=== PATIENT | female | born 1960 | race Caucasian/White ===

== ENCOUNTER 2017-07-06 14:56 | Emergency (ER) | payer OTHER ==
[2017-07-06 15:08] VITALS: BP 156/80
--- NOTE | 2017-07-06 15:18 | UC ---
Cardiac HPI - HPI Summary HPI Summary: 56 year old female presents with chest heaviness and shortness of breath - History of Current Complaint Chief Complaint: UCChestPain Stated Complaint: CHEST HEAVINESS/FLUTTER Time Seen by Provider: 07/06/17 14:59 Hx Obtained From: Patient Hx Last Menstrual Period: none, ovaries removed Onset/Duration: Gradual Onset Timing: Constant Initial Severity: Moderate Current Severity: Moderate - Allergy/Home Medications Allergies/Adverse Reactions: Allergies Allergy/AdvReac Type Severity Reaction Status Date / Time No Known Allergies Allergy Verified 07/06/17 15:08 Home Medications: Home Medications NK [No Home Medications Reported] 07/06/17 [History Confirmed 07/06/17] PMH/Surg Hx/FS Hx/Imm Hx Previously Healthy: Yes - Surgical History Surgical History: Yes Surgery Procedure, Year, and Place: TONSILLECTOMY. oophrectomy, bladder sling - Family History Known Family History: Negative: Diabetes - Social History Alcohol Use: Occasionally Substance Use Type: None Smoking Status (MU): Never Smoked Tobacco - Immunization History Most Recent Influenza Vaccination: MAY 2016 Most Recent Pneumonia Vaccination: MAY 2016 Review of Systems Cardiovascular: Chest Pain All Other Systems Reviewed And Are Negative: Yes Physical Exam Triage Information Reviewed: Yes Appearance: Ill-Appearing Vital Signs: Initial Vital Signs Temp 37.4 C 07/06/17 15:00 Pulse 70 07/06/17 15:00 Resp 14 07/06/17 15:00 BP 156/80 07/06/17 15:00 Pulse Ox 100 07/06/17 15:00 Vital Signs Reviewed: Yes Eye Exam: Normal ENT Exam: Normal Dental Exam: Normal Neck exam: Normal Neck: Positive: 1 Respiratory Exam: Normal Cardiovascular Exam: Normal Abdominal Exam: Normal Musculoskeletal Exam: Normal Neurological Exam: Normal Psychological Exam: Normal Skin Exam: Normal - Clinical Impression Provider Diagnoses: chest pain Discharge - Discharge Plan Condition: Stable Disposition: OTHER Discharge Disposition Comment: patient suggested to go to er for chest pain Patient Education Materials: Chest Pain (ED) Referrals: No Primary Care Phys,NOPCP [Medical Doctor] - Additional Instructions: PATIENT SUGGESTED TO GO TO ER FOR CHEST HEAVINESS.
== END 2017-07-06 15:27 ==
LOC: UCCORT 14:56
DX: R07.9 Chest pain, unspecified (principal)
CPT/HCPCS: 93005; 99212; G0463

== ENCOUNTER 2018-09-03 14:45 | Emergency (ER) | payer OTHER ==
[2018-09-03 15:07] VITALS: BP 140/78
--- NOTE | 2018-09-03 15:23 | UC ---
Ear Complaint HPI - HPI Summary HPI Summary: bilateral plugged ears x 4 days right worse than left , no ear pain , + nasal congestion , no cough , no fever, no dizziness - History of Current Complaint Chief Complaint: UCEar Stated Complaint: PLUGGED RIGHT EAR WITH NUMBNESS FACE Time Seen by Provider: 09/03/18 14:54 Hx Obtained From: Patient Hx Last Menstrual Period: none, ovaries removed ?: Yes Onset/Duration: Gradual Onset, Lasting Days - 4, Still Present Severity Initially: Moderate Severity Currently: Moderate Pain Intensity: 0 Alleviating Factors: Nothing Associated Signs/Symptoms: Positive: Hearing Loss - right ear, URI Symptoms - Allergies/Home Medications Allergies/Adverse Reactions: Allergies Allergy/AdvReac Type Severity Reaction Status Date / Time No Known Allergies Allergy Verified 09/03/18 15:07 Home Medications: Home Medications Blood Pressure Medication 09/03/18 [History] PMH/Surg Hx/FS Hx/Imm Hx Cardiovascular History: Hypertension - not on meds - Surgical History Surgical History: Yes Surgery Procedure, Year, and Place: TONSILLECTOMY. oophrectomy, bladder sling - Family History Known Family History: Negative: Diabetes - Social History Alcohol Use: Occasionally Substance Use Type: None Smoking Status (MU): Never Smoked Tobacco - Immunization History Most Recent Influenza Vaccination: MAY 2016 Most Recent Pneumonia Vaccination: MAY 2016 Review of Systems All Other Systems Reviewed And Are Negative: Yes Constitutional: Positive: Negative Skin: Positive: Negative Eyes: Positive: Negative Respiratory: Positive: Negative Is Patient Immunocompromised?: No Physical Exam Triage Information Reviewed: Yes Appearance: Well-Appearing, No Pain Distress, Well-Nourished Vital Signs: Initial Vital Signs Temp 98.5 F 09/03/18 15:04 Pulse 92 09/03/18 15:04 Resp 18 09/03/18 15:04 BP 140/78 09/03/18 15:04 Pulse Ox 100 09/03/18 15:04 Vital Signs Reviewed: Yes Eye Exam: Normal Eyes: Positive: Conjunctiva Clear ENT: Positive: Normal ENT inspection, Hearing grossly normal, Pharynx normal, Other - bilateral cerumen impaction , both ears were flushed with warm water, cerumen removed from both ears Ear Complaint Course/Dx - Differential Dx/Diagnosis Provider Diagnosis: Impacted cerumen Discharge - Sign-Out/Discharge Documenting (check all that apply): Patient Departure All imaging exams completed and their final reports reviewed: No Studies - Discharge Plan Condition: Stable Disposition: HOME Patient Education Materials: Diane Catesion (ED) Referrals: Darvin Berkowitz MD [Primary Care Provider] - If Needed - Billing Disposition and Condition Condition: STABLE Disposition: Home
== END 2018-09-03 15:32 | disposition home or self-care (01) ==
LOC: UCCORT 14:45
DX: H61.23 Impacted cerumen, bilateral (principal); I10 Essential (primary) hypertension
CPT/HCPCS: 99211; G0463

== ENCOUNTER 2019-05-05 14:43 | Emergency (ER) | payer BC, OTHER ==
[2019-05-05 15:07] VITALS: BP 140/80
--- NOTE | 2019-05-05 15:54 | UC ---
Ear Complaint HPI - HPI Summary HPI Summary: 58-year-old female who has had bilateral earache, sinus pressure, headache, mild sore throat over the past 4-5 days. In the past she has had similar symptoms which resolved with Flonase and Claritin D as a result of seasonal allergies. She has been using those medications without relief. She states this is not the worst headache of her life. She's had viral meningitis in the past and states this does not feel like that. - History of Current Complaint Chief Complaint: UCGeneralIllness Stated Complaint: ALVAREZ,BILAT EAR PAIN,ST,BODY ACHES Time Seen by Provider: 05/05/19 15:05 Hx Obtained From: Patient Hx Last Menstrual Period: none, ovaries removed ?: No Onset/Duration: Gradual Onset Severity Initially: Mild Severity Currently: Moderate Pain Intensity: 8 Aggravating Factors: Nothing Alleviating Factors: Nothing Associated Signs/Symptoms: Positive: URI Symptoms - Allergies/Home Medications Allergies/Adverse Reactions: Allergies Allergy/AdvReac Type Severity Reaction Status Date / Time No Known Allergies Allergy Verified 05/05/19 14:56 Home Medications: Home Medications Acetaminophen TAB* [Tylenol TAB*] 650 mg PO Q4H PRN 05/05/19 [History Confirmed 05/05/19] Aspirin 4 tab PO DAILY 05/05/19 [History Confirmed 05/05/19] Fluticasone NASAL SPRAY 50MCG* [Flonase NASAL SPRAY 50MCG*] 2 spray BOTH NARES DAILY 05/05/19 [History Confirmed 05/05/19] Loratadine/Pseudoephedrine [Claritin-D 12 Hour] 1 tab PO DAILY PRN 05/05/19 [ History Confirmed 05/05/19] Olmesartan Medoxomil 5 mg PO DAILY 05/05/19 [History Confirmed 05/05/19] PMH/Surg Hx/FS Hx/Imm Hx Previously Healthy: Yes Cardiovascular History: Hypertension - Not on medications for hypertension. Cancer History: Other - Ovarian cancer - Surgical History Surgical History: Yes Surgery Procedure, Year, and Place: TONSILLECTOMY. oophrectomy, bladder sling - Family History Known Family History: Negative: Diabetes - Social History Alcohol Use: Weekly Substance Use Type: None Smoking Status (MU): Never Smoked Tobacco - Immunization History Most Recent Influenza Vaccination: MAY 2016 Most Recent Pneumonia Vaccination: MAY 2016 Review of Systems All Other Systems Reviewed And Are Negative: Yes Constitutional: Positive: Fever Eyes: Positive: Negative ENT: Positive: Sore Throat, Ear Ache - Bilateral earache., Sinus Pain/ Tenderness - Mild maxillary tenderness. Respiratory: Positive: Negative Cardiovascular: Positive: Negative Gastrointestinal: Positive: Negative Genitourinary: Positive: Negative Motor: Positive: Negative Neurovascular: Positive: Negative Musculoskeletal: Positive: Negative Neurological: Positive: Headache - Mild headache but not the worst headache of her life. Psychological: Positive: Negative Is Patient Immunocompromised?: No Physical Exam Triage Information Reviewed: Yes Appearance: Well-Appearing, No Pain Distress, Well-Nourished Vital Signs: Initial Vital Signs Temp 100.4 F 05/05/19 15:01 Pulse 86 05/05/19 15:01 Resp 18 05/05/19 15:01 BP 140/80 05/05/19 15:01 Pulse Ox 100 05/05/19 15:01 Vital Signs Reviewed: Yes Eyes: Positive: Conjunctiva Clear ENT: Positive: Hearing grossly normal, Pharynx normal, TMs normal - Examination of the tympanic membranes were done after successful ear lavage., Sinus tenderness - Minimal tenderness on palpation left maxillary sinus area., Uvula midline. Negative: Tonsillar swelling, Tonsillar exudate, Trismus, Muffled voice, Hoarse voice Neck: Positive: Supple, Nontender, No Lymphadenopathy Respiratory: Positive: Lungs clear, Normal breath sounds, No respiratory distress, No accessory muscle use Cardiovascular: Positive: RRR, No Murmur, Pulses Normal, Brisk Capillary Refill Abdomen Description: Positive: Nontender, No Organomegaly, Soft. Negative: CVA Tenderness (R), CVA Tenderness (L) Bowel Sounds: Positive: Present Musculoskeletal: Positive: Strength Intact, ROM Intact, No Edema Neurological: Positive: Alert, Muscle Tone Normal Psychological Exam: Normal Skin: Positive: Rashes - Patient has reddened area over bridge of nose and bilateral facial cheeks as well as her neck which she states is normal for her when she is aggravated. She defined this as being aggravated that she is no better after 4-5 days. Ear Complaint Course/Dx - Course Course Of Treatment: Rapid strep test was negative, urine was negative. [place] and after consulting with Dr. Champion, I'm going to treat the patient for Lyme disease and the Lyme titers are drawn. She is to take no dairy products multivitamins or antacids 2 hours prior to taking doxycycline and 2 hours after taking the doxycycline however she should be sure and take it with food. If symptoms worsen, her headache fever or neck pain worsen she is to go to the emergency room. If she is no better on Thursday I would like her to follow-up with her primary care provider and she is agreeable to this. - Differential Dx/Diagnosis Provider Diagnosis: Fever, Headache, Otalgia of both ears Discharge - Sign-Out/Discharge Documenting (check all that apply): Patient Departure All imaging exams completed and their final reports reviewed: No Studies - Discharge Plan Condition: Fair Disposition: HOME Prescriptions: DOXYcycline CAP(*) [DOXYcycline 100MG CAP(*)] 100 mg PO BID 14 Days #28 cap Patient Education Materials: Lyme Disease (ED) Referrals: Darvin Berkowitz MD [Primary Care Provider] - Additional Instructions: May take Tylenol every 4 hours and Motrin every 8 hours alternating for fever. No dairy products, antacids or multivitamins 2 hours before you take doxycycline and 2 hours after taking doxycycline however be sure and take it with food. Wear sunscreen when outdoors because the doxycycline can make your skin more sensitive to sunburn. We will call you with the results of the Lyme titer. Follow-up with your primary care provider on Thursday if no improvement. As you go into the if you develop worsening headache, sore neck, continued fever, follow-up in the emergency room. - Billing Disposition and Condition Condition: FAIR Disposition: Home
--- NOTE | 2019-05-07 07:19 | UC ---
- Progress Note Progress Note: NEg lyme IgG, IgM no change haley 05/07/19 Course/Dx - Diagnoses Provider Diagnoses: Fever, Headache, Otalgia of both ears Discharge - Sign-Out/Discharge Documenting (check all that apply): Post-Discharge Follow Up All imaging exams completed and their final reports reviewed: No Studies - Discharge Plan Condition: Fair Disposition: HOME Prescriptions: DOXYcycline CAP(*) [DOXYcycline 100MG CAP(*)] 100 mg PO BID 14 Days #28 cap Patient Education Materials: Lyme Disease (ED) Referrals: Darvin Berkowitz MD [Primary Care Provider] - Additional Instructions: May take Tylenol every 4 hours and Motrin every 8 hours alternating for fever. No dairy products, antacids or multivitamins 2 hours before you take doxycycline and 2 hours after taking doxycycline however be sure and take it with food. Wear sunscreen when outdoors because the doxycycline can make your skin more sensitive to sunburn. We will call you with the results of the Lyme titer. Follow-up with your primary care provider on Thursday if no improvement. As you go into the weekend if you develop worsening headache, sore neck, continued fever, follow-up in the emergency room. - Billing Disposition and Condition Condition: FAIR Disposition: Home
== END 2019-05-05 15:57 | disposition home or self-care (01) ==
LOC: UCCORT 14:43
DX: R50.9 Fever, unspecified (principal); R51 Headache; H92.03 Otalgia, bilateral; I10 Essential (primary) hypertension; Z85.43 Personal history of malignant neoplasm of ovary
CPT/HCPCS: 36415; 81003; 86618; 87651; 99213; G0463